=== PATIENT | female | born 1985 | race Caucasian/White ===

== ENCOUNTER 2017-12-14 07:55 | Inpatient (IN) | payer OTHER ==
[2017-12-14] MEDS ORDERED: Penicillin G Potassium IV* 5,000,000 UNITS in NS 0.9% 100 ML* 100 ML IVPB ONE ×2 (07:58→09:56)
--- NOTE | 2017-12-14 10:05 | HP ---
General Information - General Information Maternal Age: 32 Grav: 6 Para: 1 SAB: 2 IEA: 2 Estimated Due Date: 12/29/17 Determined By: LMP Gestational Age in Weeks and Days: 37 Weeks and 6 Days Maternal Blood Type and Rh: A Positive - Results this Serology/RPR Result: Non-Reactive Rubella Result: Immune HBsAg Result: Negative HIV Result: Negative GBS Culture Result: Positive Past Medical History Delivery History: Hx Uncomplicated Vaginal Delivery Delivery History Comment: 2009 IEA 2014 D&E for fetus with diagnosed anomalies 2014 liveborn female 08/2016 MAB 11/2016 MAB Pertinent Past Medical History: Non-Contributory Pertinent Past Surgical History: See Records Past Surgical History Comment: 2013 D&E 2015 Cervical LOOP [facility] bx Pertinent Family History: Non-Contributory - Antepartal Records Antepartal Records: Reviewed, Complicated by: - Breech presentation with successful version 12/13/2017 Review of Systems Constitutional: Comfortable CV Complaint: No Respiratory: Shortness of Breath: No Gastrointestinal: No Nausea/Vomiting, Normal Bowel Movement Genitourinary: Leaking Fluid - since 0300 Musculoskeletal: No Complaint Neurological: No Headache, No Visual Changes Movement: Normal Exam Allergies/Adverse Reactions: Allergies No Known Allergies Allergy (Verified 12/13/17 10:01) BP 124/88 HR 86 RR 16 T 97.7 Lab Values - Entire Visit: Laboratory Tests 12/14/17 08:15 Vag Amniotic Fld Detect Negative Note: This is a false negative because on exam pt with + valsalva, clear fluid and Nitrazine paper + for membrane rupture - Measurements Height: 5 ft 2.99 in Weight: 165 lb 5.547 oz Weight in lbs: 165.346 Body Mass Index (BMI): 29.2 Pre- Weight: 132 lb 4.438 oz Weight Gained This : 33.069 lbs and 0.005 ozs - Exam Abdomen: No Upper Quadrant Pain Breast: Breast Exam Deferred CVA: No CVA Tenderness Extremities: No Edema Heart: Normal Rhythm/Heart Sounds HEENT: No Significant Findings Lungs: Clear Bilaterally Rectal: Rectal Exam Deferred Reflexes: DTR 2+ Thyroid: No Thyromegaly - Abdominal Exam Abdomen Exam: Non-Tender - Ultrasound/Biophysical Profile Ultrasound Status: Bedside Exam Ultrasound Findings: Vertex presentation confirmed Biophysical Profile: Normal Amniotic Fluid - FAREED 18.76 per [facility] Targeted Exam Findings See L&D Outpatient Visit Provider Note for Findings: N/A Presenting Part: Vertex - by bedside sono Membrane Status: Leaking - clear fluid Amniotic Fluid Evaluation: Negative ROM Plus - suspect false negative per exam as noted under lab results EFM Findings - External Monitor Findings Baseline Heart Rate: 145 External Monitor Findings: Accelerations Present, No Pattern of Variable or Late Decelerations, Variability Moderate, Baseline Stable External Monitor Findings Comment: No evidence of metabolic acidemia Contractions: Irregular, Mild Assessment/Plan - Obstetrical Risk Factors Obstetrical Risk Factors: GBS Positive - Plan Plan: Induction - for PROM in presence of GBS + - Date/Time of Admission Date of Admission: 12/14/17 Time of Admission: 10:07
[2017-12-14 11:06] LABS: ABS Basophils 0 10^3/ul (0-0.2); ABS Eosinophils 0 10^3/ul (0-0.6); ABS Monocytes 0.6 10^3/ul (0-0.8); ABS Neutrophils 7.7 10^3/ul (1.5-7.7); ABS Nucleated RBC 0 10^3/ul; Eosinophil % 0.4 % (0-6); Hematocrit 32 % (35-47); Hemoglobin 10.2 g/dl (12.0-16.0); Lymphocyte % 10.8 % (25-47); Mean Corpuscular HGB Conc 32 g/dl (31-36); Mean Corpuscular Hemoglobin 23 pg (27-31); Mean Corpuscular Volume 73 fL (80-97); Mean Platelet Volume 8.3 um3 (7.4-10.4); Nucleated Red Blood Cells % 0.1; Platelet Count 223 10^3/ul (150-450); Red Blood Count 4.37 10^6/ul (4.0-5.4); Red Cell Distribution Width 15 % (10.5-15); White Blood Count 9.4 10^3/ul (3.5-10.8)
[2017-12-14] MEDS ORDERED: Penicillin G Potassium IV* 2,500,000 UNITS in NS 0.9% 100 ML* 100 ML IVPB SCH ×2 (12:00→14:30)
[2017-12-14] MEDS ORDERED: Oxytocin in LR* 20 UNITS/1,000 ML BAG IVPB SCH ×2 (13:00→19:00)
[2017-12-14] MEDS ORDERED: OBEPIDURAL* 250 ML EPIDURAL ONE (16:28)
[2017-12-14] MEDS ORDERED: Witch Hazel PAD* JAR TOPICAL PRN (18:32)
[2017-12-14] MEDS ORDERED: Dibucaine 1% 28.35 GM TUBE PR PRN (18:32)
[2017-12-14] MEDS ORDERED: Glycerin ADULT SUPP PR PRN (18:32)
[2017-12-14] MEDS: Ibuprofen TAB* 600 MG PO PRN (20:34)
[2017-12-14] MEDS: Acetaminophen TAB* 325 MG PO PRN (20:34)
[2017-12-15] MEDS: Acetaminophen TAB* 325 MG PO PRN (04:07)
[2017-12-15] MEDS: Ibuprofen TAB* 600 MG PO PRN ×4 (04:08→21:53)
[2017-12-15 06:40] LABS: ABS Basophils 0 10^3/ul (0-0.2); ABS Eosinophils 0.1 10^3/ul (0-0.6); ABS Lymphocytes 1.5 10^3/ul (1.0-4.8); ABS Monocytes 0.9 10^3/ul (0-0.8); ABS Neutrophils 7.8 10^3/ul (1.5-7.7); ABS Nucleated RBC 0 10^3/ul; Eosinophil % 0.7 % (0-6); Hematocrit 28 % (35-47); Hemoglobin 9.2 g/dl (12.0-16.0); Lymphocyte % 14.6 % (25-47); Mean Corpuscular HGB Conc 33 g/dl (31-36); Mean Corpuscular Hemoglobin 24 pg (27-31); Mean Corpuscular Volume 73 fL (80-97); Mean Platelet Volume 8.5 um3 (7.4-10.4); Nucleated Red Blood Cells % 0; Platelet Count 193 10^3/ul (150-450); Red Blood Count 3.86 10^6/ul (4.0-5.4); Red Cell Distribution Width 15 % (10.5-15); White Blood Count 10.4 10^3/ul (3.5-10.8)
[2017-12-15] MEDS: Docusate CAP* 100 MG PO SCH ×4 (07:22→21:53)
[2017-12-15] MEDS: Simethicone TAB* 80 MG TAB.CHEW PO SCH ×2 (07:23→09:39)
[2017-12-15] MEDS: Ferrous Gluconate TAB* 324 MG TAB PO SCH ×2 (09:38→21:53)
[2017-12-15 21:41] VITALS: BP 110/67
[2017-12-16] MEDS: Ibuprofen TAB* 600 MG PO PRN ×2 (04:07→14:38)
--- NOTE | 2017-12-16 09:17 | PTEDU ---
Patient Name: JULIUS REDDING JULIUS REDDING selected video: Follow Me Mum: [employer] to Success[employer] to view on 8 at 9:16:34 AM from [id number]
[2017-12-16] MEDS: Docusate CAP* 100 MG PO SCH ×2 (09:25→14:35)
[2017-12-16] MEDS: Ferrous Gluconate TAB* 324 MG TAB PO SCH (09:25)
== END 2017-12-16 15:14 | disposition home or self-care (01) | DRG 775 ==
LOC: MCHOBOUT 07:55 → MCHOB 09:59
PROVIDERS: ADMIT Midwife; ATTEND Midwife
PROC: 10E0XZZ Delivery of Products of Conception, External Approach (ICD-10-PCS; principal; 2017-12-14)
PROC: 0KQM0ZZ Repair Perineum Muscle, Open Approach (ICD-10-PCS; 2017-12-14)
PROC: 4A1HXCZ Monitoring of Products of Conception, Cardiac Rate, External Approach (ICD-10-PCS; 2017-12-14)
DX: O42.02 Full-term premature rupture of membranes, onset of labor within 24 hours of rupture (principal); O99.824 Streptococcus B carrier state complicating childbirth; O69.1XX0 Labor and delivery complicated by cord around neck, with compression, not applicable or unspecified; O70.1 Second degree perineal laceration during delivery; O90.81 Anemia of the puerperium; O76 Abnormality in fetal heart rate and rhythm complicating labor and delivery; Z3A.37 37 weeks gestation of pregnancy; Z37.0 Single live birth
CPT/HCPCS: 36415; 84112; 85025; A9270-GY; J2540